=== PATIENT | female | born 1955 | race Caucasian/White ===

== ENCOUNTER → 2018-02-18 | Outpatient (CLI) | payer BC, OTHER ==
[~2018-02-18] MED LIST: CYMBALTA60 MG PO; FLUOXETINE HCL10 M1 PO; HYDROCODON-ACE1 EACH PO; NEXIUM40 MG PO; NORCO 5-325 TA1 EACH PO; PREMARIN0.3 MG; TIZANIDINE HCL 22 M1 PO; TRAMADOL HCL50 MG PO
== END ==
LOC: RAD 11:09
DX: M47.26 Other spondylosis with radiculopathy, lumbar region (principal); M25.551 Pain in right hip; M25.552 Pain in left hip

== ENCOUNTER → 2018-12-09 | Outpatient (CLI) | payer OTHER | LOC: CAT 12:28 | DX: Z13.6 Encounter for screening for cardiovascular disorders (principal); E78.00 Pure hypercholesterolemia, unspecified; I25.10 Atherosclerotic heart disease of native coronary artery without angina pectoris ==

== ENCOUNTER → 2018-12-09 | Outpatient (CLI) | payer BC, OTHER | LOC: RAD 12:29 | DX: Z12.31 Encounter for screening mammogram for malignant neoplasm of breast (principal); M25.511 Pain in right shoulder; Z88.2 Allergy status to sulfonamides ==

== ENCOUNTER → 2020-09-24 | Outpatient (CLI) | payer OTHER, BC | LOC: NUC 07:29 | PROVIDERS: ATTEND Nurse Practitioner | DX: R10.11 Right upper quadrant pain (principal) ==

== ENCOUNTER 2020-11-06 06:59 | Day surgery (SDC) | payer OTHER, BC ==
[~2020-11-06] VITALS: Ht 165.1 cm; Wt 84.4 kg
[~2020-11-06 06:59] MED LIST changes: +ASA81BEC PO; +OMEPRAZOLE40 MG PO; +ONDANSETRON HCL4 M3 PO; +TRAZODONE HCL50 MG PO; +VITAMIN B-121000 MC2 PO
[2020-11-06 08:08] LABS: HEMATOCRIT 40.2 % (37.0-47.0); HEMOGLOBIN 13.3 gm/dL (12.0-15.0); MCH 29.3 pg (26.0-34.0); MCHC 33.1 g/dL (28.0-37.0); MCV 88.7 fL (80.0-100.0); RBC 4.53 mil/uL (4.20-5.00); RDW 13.9 % (10.5-14.5); WBC 5.7 thou/uL (4.0-11.0)
[2020-11-06 08:16] VITALS: BP 148/71
[2020-11-06 08:46] LABS: CREATININE 0.8 mg/dL (0.6-1.0); POTASSIUM 4.5 mmol/L (3.5-5.1)
[2020-11-06 08:53] LABS: ALBUMIN 3.6 g/dL (3.4-5.0); TOTAL BILIRUBIN 0.4 mg/dL (0.2-1.0); TOTAL PROTEIN 7.5 g/dL (6.4-8.2)
[2020-11-06] MEDS ORDERED: TYLENOL325 MG PO (10:52)
[2020-11-06] MEDS ORDERED: IBUPROFEN 200200 M1 PO (10:52)
[2020-11-06] MEDS ORDERED: OXYCODONE HCL 55 MG PO (10:52)
[2020-11-06] MEDS ORDERED: COLACE 100 MG100 MG PO (10:53)
[2020-11-06] MEDS ORDERED: MIRALAX17 GM PO (10:53)
[2020-11-06 11:54] VITALS: BP 148/71
--- NOTE | 2020-11-07 17:07 | PATH ---
[facility] [address] [place] [address] PATHOLOGY RPT PROCEDURE Name: BRUNO RODRIGUEZ Room #: DEP [facility]..#: [id number] Admission: 11/06/20 Date of : 53 Discharge: 11/06/20 Report #: [id number] Path Case #: [id number] [facility] Accession Number: [id number] . 01 Material submitted: . gallbladder - GALLBLADDER . 01 Clinical history: . LAPAROSCOPIC CHOELCYSTECTOMY- SJ LAPAROSCOPIC WITH LYSIS OF ADHESIONS BILIARY DYSKINESIA . 02 Diagnosis: Gallbladder, cholecystectomy: - Mild chronic cholecystitis. . (IUV:mml; 11/07/2020) QL 11/07/2020 1612 Local . 02 Electronically signed: . Felecia Gallegos MD, Pathologist NPI- [id number] . 01 Gross description: . Fixative: Formalin Labeled: Gallbladder Specimen received: Intact bladder Dimensions: 7.2 x 3.5 x 2.3 cm Serosa: Purple-mcdonald Lymph node: Not identified Mucosa: Velvety, bile-stained Average wall thickness: 0.1 cm Calculi: None present Abnormalities: Displaying a single, yellow, possible polyp . A1- Coil Connector body, fundus, the cystic duct margin, and possible polyp. ([facility]; 11/06/2020) NRI/NRI 11/06/2020 1916 Local . 02 Pathologist provided ICD-10: K81.1 . 02 CPT . 416303 Specimen Comment: A courtesy copy of this report has been sent to [phone], [phone] [address] PATHOLOGY RPT PROCEDURE Name: BRUNO RODRIGUEZ Room #: [facility]#: [id number] Admission: 11/06/20 Date of : 53 Discharge: 11/06/20 Report #: [id number] Path Case #: [id number] Specimen Comment: [id number] Specimen Comment: Report sent to / DR SMITH Performed at: 01 [facility] [address], [place] [id number] MD Gordo Richards MD Phone: [phone] Performed at: 02 [facility] [address] [place], [place] [id number] MD Felecia Gallegos MD Phone: [phone]
== END 2020-11-06 11:54 | disposition home or self-care (01) ==
LOC: OR 06:59 → TBA 09:03 → OR 10:01
PROVIDERS: ATTEND Surgery
DX: K81.1 Chronic cholecystitis (principal); K66.0 Peritoneal adhesions (postprocedural) (postinfection); F32.9 Major depressive disorder, single episode, unspecified; G47.30 Sleep apnea, unspecified; K21.9 Gastro-esophageal reflux disease without esophagitis; M19.90 Unspecified osteoarthritis, unspecified site; M85.80 Other specified disorders of bone density and structure, unspecified site; Z98.890 Other specified postprocedural states; Z79.899 Other long term (current) drug therapy; Z20.822 Contact with and (suspected) exposure to COVID-19; Z90.49 Acquired absence of other specified parts of digestive tract; Z87.891 Personal history of nicotine dependence; Z90.710 Acquired absence of both cervix and uterus; Z88.2 Allergy status to sulfonamides
CPT/HCPCS: 50010; 50101; 50411; 50555; 51489; 52265; 52266; 53307; 53310; 53312; 54022; 54118; 55245; 56462; 56525; 56526; 56528; 58574; 58910; 62110; 62900; 70005